=== PATIENT | male | born 1980 | race American Indian/Alaskan Native ===

== ENCOUNTER 2019-09-09 03:41 | Emergency (ER) | payer SELFPAY ==
--- NOTE | 2019-09-09 04:11 | Emergency Department Report ---
<MARY CARDENAS - Last Filed: 09/09/19 04:09> ED Psych HPI - General Chief Complaint: Psych Stated Complaint: DEPRESSION/SI Time Seen by Provider: 09/09/19 04:06 Source: patient, EMS Mode of arrival: Ambulatory - History of Present Illness Initial Comments: 39-year-old male reports history of depression, presents to ED reporting suicidal ideation. Patient states he has been feeling suicidal for the past month due to a pending legal case. Patient does not have a plan currently. He reports alcohol, marijuana, cocaine use. Patient reports previous suicide attempts 5 months ago which was an attempted overdose. MD Complaint: suicidal ideation, feels depressed -: month(s) (1) Associated Psychiatric Symptoms: depression, suicidal ideation History of same: Yes Quality: constant Improves With: none Worsens With: none Context: recent alcohol abuse, recent drug abuse, significant life stressor Associated Symptoms: denies other symptoms Treatments Prior to Arrival: none If Self Harm: admits thoughts of - Related Data Home Medications Medication Instructions Recorded Confirmed Last Taken Albuterol Sulfate [Ventolin HFA] 2 puff IH Q4H PRN 05/25/13 05/25/13 Unknown Previous Rx's Medication Instructions Recorded Last Taken Type Albuterol Sulfate [Ventolin HFA] 2 puff IH Q4H PRN #1 [email or web address] 05/26/13 Unknown Rx Amoxicillin [Trimox CAP] 1,000 mg PO BID #40 capsule 05/26/13 Unknown Rx Allergies Allergy/AdvReac Type Severity Reaction Status Date / Time No Known Allergies Allergy Verified 05/26/13 01:01 EST ED Review of Systems Comment: All other systems reviewed and negative Psychiatric: depression, suicidal thoughts. denies: auditory hallucinations, visual hallucinations, homicidal thoughts ED Past Medical Hx - Past Medical History Hx Asthma: Yes - Social History Smoking Status: Current Every Day Smoker Substance Use Type: Alcohol, Cocaine, Marijuana - Medications Home Medications: Home Medications Medication Instructions Recorded Confirmed Last Taken Type Albuterol Sulfate [Ventolin HFA] 2 puff IH Q4H PRN 05/25/13 05/25/13 Unknown History Albuterol Sulfate [Ventolin HFA] 2 puff IH Q4H PRN #1 [email or web address] 05/26/13 Unknown Rx Amoxicillin [Trimox CAP] 1,000 mg PO BID #40 capsule 05/26/13 Unknown Rx ED Physical Exam - General Limitations: No Limitations General appearance: alert, in no apparent distress - Head Head exam: Present: atraumatic, normocephalic - Eye Eye exam: Present: normal appearance, EOMI - ENT ENT exam: Present: mucous membranes moist - Neck Neck exam: Present: normal inspection - Respiratory Respiratory exam: Present: normal lung sounds bilaterally. Absent: respiratory distress - Cardiovascular Cardiovascular Exam: Present: regular rate, normal rhythm - GI/Abdominal GI/Abdominal exam: Absent: distended - Extremities Exam Extremities exam: Present: normal inspection - Neurological Exam Neurological exam: Present: alert, oriented X3 - Psychiatric Psychiatric exam: Present: depressed, suicidal ideation - Skin Skin exam: Present: warm, dry, intact, normal color ED Disposition Clinical Impression: Suicidal ideation, Depression, Polysubstance abuse Disposition: DC-01 TO HOME OR SELFCARE Condition: Stable Instructions: Depression (ED), Suicide Prevention for Adults (ED), Polysubstance Abuse (ED) Additional Instructions: Follow-up with your doctor or doctor/clinic provided. Return if symptoms worsen as indicated by your discharge instructions. Referrals: PRIMARY CARE, [Primary Care Provider] - 3-5 Days [facility] [Outside] - 3-5 Days [facility] [Provider Group] - 3-5 Days <APOLINAR HERBERT - Last Filed: 09/09/19 12:21> ED Review of Systems ROS: Stated complaint: DEPRESSION/SI Other details as noted in HPI ED Course Vital Signs 09/09/19 09/09/19 09/09/19 03:59 04:00 09:19 Temperature 98.0 F 98.0 F 97.7 F Pulse Rate 91 H 91 H 81 Respiratory 16 16 18 Rate Blood Pressure 115/64 115/67 Blood Pressure 115/64 [Left] O2 Sat by Pulse 96 96 97 Oximetry - Reevaluation(s) Reevaluation #1: 09/09/19 12:18 1013 rescinded by mental health (see note) no meds recommended outpt psychiatric resources provided by mental health ED Medical Decision Making - Lab Data Result diagrams: 09/09/19 04:16 09/09/19 04:16 Critical Care Time: No Critical care attestation.: If time is entered above; I have spent that time in minutes in the direct care of this critically ill patient, excluding procedure time. ED Disposition Is pt being admited?: No Does the pt Need Aspirin: No Time of Disposition: 12:20
[2019-09-09 04:30] LABS: Basophils % (Auto) 0.8 % (0.0-1.8); Eosinophils # (Auto) 0.2 K/mm3 (0.0-0.4); Hematocrit 44.3 % (35.5-45.6); Hemoglobin 14.6 gm/dl (11.8-15.2); Lymphocytes # (Auto) 1.3 K/mm3 (1.2-5.4); Lymphocytes % (Auto) 25.3 % (13.4-35.0); Mean Corpuscular HGB Conc 33 % (32-34); Mean Corpuscular Volume 91 fl (84-94); Monocytes # (Auto) 0.4 K/mm3 (0.0-0.8); Monocytes % (Auto) 7.5 % (0.0-7.3); Platelet Count 291 K/mm3 (140-440); Red Blood Count 4.87 M/mm3 (3.65-5.03); Red Cell Distribution Width 14.3 % (13.2-15.2)
[2019-09-09 04:52] LABS: BUN/Creatinine Ratio 11; Blood Urea Nitrogen 10 mg/dL (9-20); Calcium 9.8 mg/dL (8.4-10.2); Hemolysis Index 10
[2019-09-09 09:25] VITALS: BP 115/67
[2019-09-09 09:51] LABS: Amphetamine Screen,Urine PRESUMPTIVE NEGATIVE; Benzodiazepines Screen,Urine PRESUMPTIVE NEGATIVE; Cannabinoid Screen,Urine PRESUMPTIVE NEGATIVE; Cocaine Screen,Urine PRESUMPTIVE NEGATIVE; Methadone Screen,Urine PRESUMPTIVE NEGATIVE; Opiate Screen,Urine PRESUMPTIVE NEGATIVE
[2019-09-09 09:53] LABS: Mucus,Urine FEW /HPF
[2019-09-09 10:16] LABS: Bilirubin,Urine Negative (Negative); Blood,Urine Negative (Negative); Color,Urine Yellow (Yellow); Urobilinogen,Urine < 0.2 mg/dL (<2.0)
== END 2019-09-09 12:39 | disposition home or self-care (01) ==
LOC: ED 03:41
DX: F32.9 Major depressive disorder, single episode, unspecified (principal); F19.10 Other psychoactive substance abuse, uncomplicated; J45.909 Unspecified asthma, uncomplicated; F17.200 Nicotine dependence, unspecified, uncomplicated; F12.10 Cannabis abuse, uncomplicated; F14.10 Cocaine abuse, uncomplicated; Z79.899 Other long term (current) drug therapy
CPT/HCPCS: 36415; 80048; 80307; 80320; 81001; 85025; G0480